=== PATIENT | male | born 1955 | race Caucasian/White ===

== ENCOUNTER 2020-10-20 10:05 | Emergency (ER) | payer MEDICARE ==
[2020-10-20] MEDS: Naloxone 2 MG/2 ML Syringe IVPUSH PRN (10:10)
[2020-10-20] MEDS: hydrALAZINE 20 MG/ML SDV IVPUSH ONE ×2 (10:35→10:55)
[2020-10-20] MEDS: Etomidate 2 MG/ML 10 ML SDV IVPUSH ONE (10:40)
[2020-10-20] MEDS: Succinylcholine 200 MG/10 ML MDV IV STA (10:43)
[2020-10-20] MEDS: fentaNYL 100 MCG/2 ML SDV IVPUSH PRN (11:28)
[2020-10-20] MEDS: propofoL 100 ML IV SCH (11:29)
[2020-10-20 12:58] VITALS: BP 135/56; PULSE 101
[2020-10-20] MEDS: hydrALAZINE 20 MG/ML SDV ONE ×2 (15:29)
[2020-10-20] MEDS ORDERED: Sodium Chloride 0.9% 1,000 ML IV SCH (15:45)
[2020-10-20] MEDS ORDERED: Sodium Chloride 0.9% 10 ML Syringe FLUSH PRN (16:10)
--- NOTE | 2020-10-21 13:43 | CT ---
DATE OF SERVICE: 10/20/20 CLINICAL DATA: UNRESPONSIVE UNENHANCED BRAIN CT: Multi slice axial acquisition without IV contrast was performed. Axial images and sagittal and coronal reformations are reviewed. No priors. There is a large, extraaxial, crescentic shaped, hyperdense collection in the right hemisphere consistent in appearance with a large, acute, subdural hematoma. It measures 2.8 cm in its maximum depth. There is marked mass effect associated with it with 1.5 cm shift of the midline structures to the left. There is marked effacement of the right lateral ventricle and effacement of the cerebral sulci. No other significant findings. IMPRESSION: 1. Large right sided subdural hematoma. See above. The patient's physician was notified of the findings by telephone and by virtual radiologic preliminary radiology report. [id number] [facility]
--- NOTE | 2020-10-21 13:46 | CR ---
DATE OF SERVICE: 10/20/20 CLINICAL DATA: UNRESPONSIVE AP CHEST: No priors. The exam was performed during expiration. The heart is enlarged. There are atelectatic changes in the left lung base. The lungs are otherwise clear. No pneumothorax. No pleural effusions. [id number] [facility]
--- NOTE | 2020-10-21 13:48 | CR ---
DATE OF SERVICE: 10/20/20 CLINICAL DATA: CHECK INTUBATION AP CHEST: Comparison is made to a prior exam from earlier in the day. An endotracheal tube has been inserted. Its distal tip is 1 cm above the dorene. No other significant interval changes from the prior study. [id number] [facility]
--- NOTE | 2020-10-23 05:39 | ER ---
REASON FOR EMERGENCY ROOM VISIT: Unresponsive. HISTORY: This 65-year-old man was brought in by ambulance after having collapsed while fishing with [place]. He is from the [facility] and was up on a fishing excursion with his son. Apparently, he suddenly collapsed and became unresponsive. He had no known history of trauma prior to this episode and had no complaints prior to this episode. Once he suddenly collapsed according to the son, he was unresponsive. They went to shore and an ambulance was called. He has no history of seizures and no history of diabetes, but he did have a history of atrial fibrillation for which he was taking Eliquis. He also had a history of hypertension. No medications were given to the patient in transport. According to the ambulance personnel, he had minimal responsiveness to painful stimuli. His pupils were mid position, but unresponsive. He did not respond to any verbal stimuli whatsoever. On arrival, he was judged to have a Zandra Coma scale of 6, and again on careful questioning, the son does not know of any incident of head trauma at all at any time. PAST MEDICAL HISTORY: Not entirely clear from discussing with the patient's son. 1. He does have hypertension and is on Eliquis for atrial fibrillation. 2. He does have a history of "kidney problems.". MEDICATIONS: Eliquis and 2 antihypertensive medications. ALLERGIES: NONE KNOWN. REVIEW OF SYSTEMS: As mentioned in HPI. No other review of systems could be obtained. PHYSICAL EXAMINATION: VITAL SIGNS: On arrival, his blood pressure was 180/120, his heart rate was in the 50s to 60s and did joshua down to the 30s on a couple of brief occasions. He was having spontaneous respirations. O2 sats were in the mid 90s. HEENT: No external evidence of head trauma. TMs, no hemotympanum was noted. Oropharynx unremarkable. No foreign body. His airway is clear. Eyes, pupils are midposition and nonreactive. He did not do any eye opening to verbal stimulation. NECK: He has a very thick, shortened neck. CHEST: Breath sounds were equal bilaterally. CARDIAC: Regular rate without murmur. ABDOMEN: Paws-yj-lgfpaiqfnf distended. No masses. EXTREMITIES: He was perfusing well. He had palpable pedal pulses and femoral pulses. NEUROLOGIC: [place] Coma scale was 4. He did not open his eyes to verbal command or painful stimuli. He did occasionally move his feet spontaneously and twitch slightly. On plantar stimulation, his toes were upgoing bilaterally. He did not do withdrawal to painful stimuli. FURTHER EMERGENCY ROOM COURSE: We jelly blood preliminarily for blood sugar which was 150, CMP and CBC as well as PT and PTT. A CT scan was ordered immediately after a quick neurologicas survey. It showed a very large right subdural hematoma, with midline shift, and possible signs of uncal herniation. IV access had been obtained on arrival, and Narcan was given X1, because of his history of recent opiate use, with no appreciable changes noted. We placed him on oxygen by mask initially and we did get the assistance of [facility] Dee who assisted us with documentation and so forth. A physician also assisted us from [facility] as well. We recognized that he had a severe subdural hematoma. While we were awaiting a return phone call from the neurosurgeon, I decided to proceed with securing a good airway. We used etomidate and succinylcholine for rapid sequence intubation and 2 attempts were made to intubate him by myself. I could not visualize the vocal cords adequately to confidently get an airway as his anatomy was very difficult to negotiate and visualization was difficult as well. After these 2 attempts, we oxygenated him again and started him on propofol to try to get his blood pressure down. This was successful, but we also gave him fentanyl and we did give him hydralazine intermittently x2 to get his blood pressure down to below 160 systolic. This combined with the propofol and fentanyl, kept his blood pressure at a more acceptable level. Eventually, we were able to get his blood pressure down to 130 systolic. After the second unsuccessful attempt, we went ahead and bagged him again. We inserted an oral airway and bagged him to try to preoxygenate him and I did then place a LMA airway. We had some difficulty maintaining this airway in place. It seemed like bagging him became more and difficult with this airway in place. Therefore, I switched it out to a Aaron airway. #4 Aaron airway was inserted without difficulty and inflated with 60 mL of air and this made bagging him much easier. We were able to subsequently maintain acceptable O2 saturations. I did try to pass an OG and a nasogastric tube and was unable to get this accomplished. His abdomen was moderately distended at this time. He did not aspirate, but there was some old blood in his posterior pharynx from the instrumentation. By this point, I was able to discuss the patient with the neurosurgeon from [facility] and he had reviewed the patient's CT scan indicating that this was a very large subdural hematoma with an anticipated very poor prognosis. We did discuss possibility of mannitol or even Keppra and he did not want to do that at this time. We attempted to get helicopter air transport and failed because of the low ceiling. Therefore, we resorted to a fixed wing and were able to have the fixed wing transport arrive. Once they arrived, the paramedics wanted to switch the airways and did not feel comfortable transporting him with a Aaron airway in place. With some difficulty and after 3 or 4 attempts, they were able to endotracheally intubate the gentleman. We did get good breath sounds bilaterally after this was accomplished. The tip of the tube was confirmed with chest x-ray afterwards. The patient remained hemodynamically stable once we got his blood pressure down and his oxygenation once he was intubated with the supraglottic airway as well as the definitive endotracheal airway was quite acceptable. I discussed the patient's situation with his son and the patient's over the phone and they understand. initially expressed the desire to have him flown to [place], but I felt that it was in his best interest to go straight to [facility] under the circumstances. She understood and agreed with this plan. She knows that his prognosis is poor at this stage. IMPRESSION: 1. Subdural hematoma with coma. 2. Respiratory failure. MARY CARMEN/REKHA /[id number] MTDDemetra
== END 2020-10-20 13:40 ==
LOC: LB.ED 10:05
DX: I62.00 Nontraumatic subdural hemorrhage, unspecified (principal); J96.90 Respiratory failure, unspecified, unspecified whether with hypoxia or hypercapnia; I48.91 Unspecified atrial fibrillation; I10 Essential (primary) hypertension; Z79.01 Long term (current) use of anticoagulants; Z79.899 Other long term (current) drug therapy
CPT/HCPCS: 31500; 36415; 43752; 70450; 71045; 80053; 84484; 85025; 85610; 85730; 93005; 96374; 96375; 99285-25; A0425; A0429; J0330; J0360; J2310; J2704; J3010; J3490